=== PATIENT | female | born 1990 | race Caucasian/White ===

== ENCOUNTER 2021-03-14 08:11 | Outpatient (CLI) | payer BC ==
[2021-03-14 17:35] LABS: SARS-CoV-2 PCR by NAA Not Detected (NotDetected)
== END 2021-03-14 08:12 | disposition home or self-care (01) ==
LOC: CSHLAB 08:11
PROVIDERS: ATTEND Obstetrics & Gynecology
DX: Z01.812 Encounter for preprocedural laboratory examination (principal); Z20.822 Contact with and (suspected) exposure to COVID-19
CPT/HCPCS: U0003; U0005

== ENCOUNTER 2021-03-17 18:00 | Inpatient (IN) | payer BC ==
[2021-03-18 06:16] VITALS: BMI 35.1
[2021-03-18] MEDS ORDERED: Ondansetron PF 4 MG/2 ML Vial IVP PRN ×3 (06:20→18:40)
[2021-03-18] MEDS ORDERED: Zolpidem Tartrate 5 MG TAB PO PRN ×2 (06:20→23:13)
[2021-03-18] MEDS ORDERED: Lidocaine 1% (PF) 30 ML VIAL SC PRN (06:20)
[2021-03-18] MEDS ORDERED: Diphenoxylate HCl/Atropine Tablet PO PRN ×2 (06:20)
[2021-03-18] MEDS ORDERED: Acetaminophen 500 MG TAB PO PRN (06:20)
[2021-03-18] MEDS ORDERED: Butorphanol Tartrate 1 MG/ML VIAL SLOW IVP PRN (06:20)
[2021-03-18] MEDS ORDERED: hydrALAZINE 20 MG/ML VIAL SLOW IVP PRN ×2 (06:20→18:40)
[2021-03-18] MEDS ORDERED: Misoprostol 200 MCG TAB PR PRN (06:20)
[2021-03-18] MEDS ORDERED: HYDROcodone/Acetaminophen 5/325 mg Tablet PO PRN ×4 (06:20→23:12)
[2021-03-18] MEDS ORDERED: Promethazine HCl 25 MG/ML VIAL IM PRN ×2 (06:20→13:18)
[2021-03-18] MEDS ORDERED: Ibuprofen 800 MG TAB PO PRN (06:20)
[2021-03-18] MEDS ORDERED: Docusate 100 MG CAP PO PRN (06:20)
[2021-03-18] MEDS ORDERED: NS w/ Oxytocin 30 units 500 ML ONE (06:24)
[2021-03-18] MEDS ORDERED: NS w/ Oxytocin 30 units 500 ML IVPB SCH (06:30)
[2021-03-18] MEDS ORDERED: NS w/ Oxytocin 30 units 500 ML IV SCH ×3 (06:30→18:45)
[2021-03-18 07:17] LABS: Mean Corpuscular HGB CONC 34.5 g/dL (32.0-36.0); Mean Corpuscular Hemoglobin 32.5 pg (27.0-33.0); Mean Corpuscular Volume 94.3 fl (81.6-98.3); Platelet Count 223 10x3/uL (150-450); Red Blood Cell (RBC) Count 3.69 10x6/uL (3.90-5.03); White Blood Cell (WBC) Count 10.1 10x3/uL (3.5-10.5)
[2021-03-18 08:00] LABS: Syphilis Antibody Nonreactive (Nonreactive); Syphilis Antibody Index 0.02 S/CO (<1.00 Non-Reactive)
[2021-03-18 08:01] LABS: HIV (1/2) Antibody/Antigen Non-Reactive (NonReactive); HIV 1/2 INDEX 0.04 S/CO (<1.00); Hep B Surf Ag Non-Reactive S/CO (NonReactive)
[2021-03-18 08:22] LABS: HBSAg Index 0.19 S/CO (0-0.99)
[2021-03-18] MEDS: Lactated Ringer's 1,000 ML IV SCH (10:48)
[2021-03-18] MEDS: Misoprostol 100 MCG TAB VAG SCH ×2 (10:49→10:50)
[2021-03-18] MEDS ORDERED: Fentanyl 2 mcg/Bup 0.1% Cadd 100 ML ONE (12:09)
[2021-03-18] MEDS ORDERED: Naloxone HCl 0.4 mg/ml Vial IVP PRN ×2 (13:18)
[2021-03-18] MEDS ORDERED: diphenhydrAMINE 50 MG/ML VIAL IVP PRN (13:18)
[2021-03-18] MEDS ORDERED: Lactated Ringer's 500 ML IV PRN (13:18)
[2021-03-18] MEDS ORDERED: Hydrocerin (Eucerin) Cream 120 gm Jar TOP PRN (13:18)
[2021-03-18] MEDS ORDERED: ePHEDrine Sulfate 50 MG/10 ML VIAL SLOW IVP PRN (13:18)
[2021-03-18] MEDS ORDERED: Acetaminophen 325 MG TAB PO PRN (13:18)
[2021-03-18] MEDS ORDERED: Fentanyl 2 mcg/Bupivacaine 0.1% Cassette 100 ML EPIDURAL SCH (13:30)
[2021-03-18] MEDS ORDERED: Communication Order-Pharmacy FS PRN (13:30)
[2021-03-18] MEDS ORDERED: Carboprost 250 MCG/ML AMP ONE (17:50)
[2021-03-18] MEDS ORDERED: Misoprostol 200 MCG TAB ONE (17:50)
[2021-03-18] MEDS ORDERED: Milk Of Magnesia 30 ML UDCUP PO PRN (18:40)
[2021-03-18] MEDS ORDERED: Preparation H Ointment 28 GM TUBE PR PRN (18:40)
[2021-03-18] MEDS ORDERED: Boostrix 0.5 ML (Tdap) VIAL IM ONE (18:40)
[2021-03-18] MEDS ORDERED: Lanolin Ointment 7 GM TUBE TOP PRN (18:40)
[2021-03-18] MEDS ORDERED: Benzocaine-Menthol 82.5 ML CAN TOP PRN (18:40)
[2021-03-18] MEDS ORDERED: Misoprostol 200 MCG TAB VAG PRN (18:40)
[2021-03-18] MEDS ORDERED: diphenhydrAMINE 25 MG CAP PO PRN (18:40)
[2021-03-18] MEDS ORDERED: Bisacodyl 10 MG SUPP PR PRN (18:40)
[2021-03-18] MEDS: Ibuprofen 800 MG TAB PO SCH (20:03)
[2021-03-19] MEDS: Acetaminophen 500 MG TAB PO PRN ×3 (02:24→19:41)
[2021-03-19] MEDS: Docusate Calcium (SURFAK) 240 MG CAP PO SCH ×3 (06:16→20:56)
[2021-03-19] MEDS: Ibuprofen 800 MG TAB PO SCH ×3 (06:19→20:56)
[2021-03-19] MEDS: Ferrous Sulfate 325 MG TAB PO SCH ×2 (08:09→16:51)
[2021-03-19] MEDS: Prenatal Vitamin 1 TAB PO SCH (11:26)
[2021-03-19] MEDS: Misoprostol 100 MCG TAB VAG SCH (11:27)
[2021-03-19] MEDS: Lactated Ringer's 1,000 ML IV SCH (11:28)
[2021-03-20] MEDS: Ibuprofen 800 MG TAB PO SCH (06:07)
[2021-03-20] MEDS: Docusate Calcium (SURFAK) 240 MG CAP PO SCH (08:53)
[2021-03-20] MEDS: Ferrous Sulfate 325 MG TAB PO SCH (09:00)
[2021-03-20] MEDS: Prenatal Vitamin 1 TAB PO SCH (09:00)
[2021-03-20 09:20] VITALS: BP 117/72; TEMP 98.7
== END 2021-03-20 11:05 | disposition home or self-care (01) | DRG 806 ==
LOC: CSHLD 03-18 05:31 → CSHPP 03-19 08:50
PROVIDERS: ADMIT Obstetrics & Gynecology; ATTEND Obstetrics & Gynecology
PROC: 10E0XZZ Delivery of Products of Conception, External Approach (ICD-10-PCS; principal; 2021-03-19)
PROC: 0KQM0ZZ Repair Perineum Muscle, Open Approach (ICD-10-PCS; 2021-03-19)
PROC: 10907ZC Drainage of Amniotic Fluid, Therapeutic from Products of Conception, Via Natural or Artificial Opening (ICD-10-PCS; 2021-03-19)
DX: O10.02 Pre-existing essential hypertension complicating childbirth (principal); O99.12 Other diseases of the blood and blood-forming organs and certain disorders involving the immune mechanism complicating childbirth; Z37.0 Single live birth; D68.59 Other primary thrombophilia; Z20.822 Contact with and (suspected) exposure to COVID-19; O70.1 Second degree perineal laceration during delivery; Z3A.38 38 weeks gestation of pregnancy
CPT/HCPCS: 36415; 51702; 85027; 86780; 86850; 86900; 86901; 87340; 87389; J2405; J2590; J7120